=== PATIENT | female | born 1995 | race Two or more races ===

== ENCOUNTER 2024-10-10 08:00 | Emergency (ER) | payer BC, MEDICAID, SELFPAY ==
[2024-10-10 08:18] VITALS: BP 122/76; PULSE 86; RESP 16; TEMP 37.1; O2SAT 95; BMI 26.4
--- NOTE | 2024-10-10 08:46 | EDNOTE_ITS ---
Upper Respiratory Inf. RME/HPI General Chief Complaint: Flu Like Symptoms Stated Complaint: FEVER, COUGH, CONGESTION Time Seen by Provider: 10/10/24 08:11 Arrival date/time: 10/10/24 08:00 This is a 29-year-old female that comes in with complaints of cough and congestion for the past week. Patient states she got a fever yesterday. Patient also complains of a sore throat. Patient reports that the cough is keeping her up at night. Patient reports sick contacts at home with same symptoms. Patient denies past medical history. Related Data Home Medications ?Medication ?Instructions ?Recorded ?Confirmed vitamin with calcium 1 tab PO QDAY 09/21/22 10/03/22 no.72-iron 27 mg-folic acid 1 mg tablet ( Vitamins Plus Low Iron) ursodiol 200 mg capsule 200 mg PO BID 10/03/22 10/03/22 Previous Rx's ?Medication ?Instructions ?Recorded amoxicillin 875 mg tablet 875 mg PO BID #20 tabs 09/22/22 fluconazole 200 mg tablet 400 mg (2 x 200 mg) PO QDAY [place] 10/04/22 fever #60 tabs ibuprofen 800 mg tablet 800 mg PO Q6H PRN pain #14 tabs 10/10/24 promethazine-DM 6.25 mg-15 mg/5 mL 5 ml PO Q6H PRN cough #118 mL 10/10/24 oral syrup Allergies Allergy/AdvReac Type Severity Reaction Status Date / Time No Known Allergies Allergy Verified 10/03/22 11:32 Review of Systems Review of Systems Systems Reviewed: All systems reviewed, normal except as documented Past Medical History Social History SMOKING STATUS: Never smoker SUBSTANCE USE: does not use ALCOHOL: Never Travel History EBOLA RISK: No ED Exam General General appearance: Present alert and in no apparent distress Head Head exam: Present atraumatic Eye Eye exam: Present normal appearance, PERRL and EOMI ENT ENT exam: Present normal exam, normal oropharynx and mucous membranes moist Neck Neck exam: Present normal inspection, full ROM and trachea midline Chest Chest inspection: Present normal inspection and symmetric chest wall rise Respiratory Respiratory exam: Present normal lung sounds bilaterally Cardiovascular Cardiovascular exam: Present regular rate, normal rhythm and normal heart sounds Abdominal Exam Abdominal exam: Present soft Extremities Exam Extremities exam: Present normal inspection and full ROM Back Exam Back exam: Present normal inspection and full ROM Neurological Exam Neurological exam: Present alert, oriented X3 and CN II-XII intact Psychiatric Psychiatric exam: Present normal affect and normal mood Skin Skin exam: Present warm, dry, intact and normal color Course Quality Measures none Orders Category Date Time Status Bedside COVID-19 Antigen Test NOW Care 10/10/24 08:46 Completed Bedside Influenza A&B Antigen Test NOW Care 10/10/24 08:47 Completed Acetaminophen Tab [Tylenol ES Tab] Med 10/10/24 08:43 Discontinued 1,000 mg PO X1 ONE Ibuprofen Tab [Motrin Tab] Med 10/10/24 08:43 Discontinued 800 mg PO X1 ONE Vital Signs Vital signs: Vital Signs Temperature 98.8 F 10/10/24 08:18 Pulse Rate 86 10/10/24 08:18 Respiratory Rate 16 10/10/24 08:18 Blood Pressure 122/76 10/10/24 08:18 Pulse Oximetry (%) 95 10/10/24 08:18 Oxygen Delivery Method Room Air 10/10/24 08:18 Upper Respiratory Infection MDM Narrative MDM Narrative:: Pt given tylenol and ibuprofen. Pt influenza negative. Pt told to follow up with pmd in 1-2 days. Come back to ED if symptoms change or worsen. Patient data External records reviewed:: [facility] previous records Clinical information provided by:: patient Social determinants that could affect healthcare access:: none Patient has the following chronic illnesses:: no How is presenting disease/condition affected by chronic disease/condition?: no chronic disease Evaluation data The following diagnostics were reviewed and interpreted by me:: lab results Lab and/or radiology exams considered but not ordered:: none Interpretation Summary: see note Medications / Prescriptions Medications or Prescriptions considered but not ordered:: none Medication administrations:: Medication Administration History Discontinued Medications Acetaminophen (Acetaminophen 500 Mg Tablet) 1,000 mg PO X1 ONE Stop: 10/10/24 08:44 Last Admin: 10/10/24 09:18 Dose: 1,000 mg Documented By: ARF Ibuprofen (Ibuprofen Tab 400 Mg Tablet) 800 mg PO X1 ONE Stop: 10/10/24 08:44 Last Admin: 10/10/24 09:18 Dose: 800 mg Documented By: ARF see [facility] Consultations Consultation(s) initiated? (list below): No Diagnosis Upper Respiratory Differential Diagnosis: upper respiratory infection, viral infection, bronchitis and influenza Most likely diagnosis given after review of the tests above:: influenza Admission Indicated Admission indicated?: not indicated Admission Request Was there a request for admission?: No Disposition Plan Disposition Plan: Discharge Discharge Attestation Discharge Attestation: The patient and all family members were given an opportunity to ask questions and understood the discharge instructions. Discharge instructions specifically effects, indications for sooner follow up or return to the emergency department, and the expected course of current diagnosis. Patient condition: Stable Discharge Plan Plan Patient Disposition: HOME (Self Care) Patient condition on transfer: Stable Prescriptions/Referrals Prescriptions/Med Rec: New promethazine-DM 6.25-15 mg/5 mL syrup 5 ml PO Q6H PRN (Reason: cough) Qty: 118 0RF ibuprofen 800 mg tablet 800 mg PO Q6H PRN (Reason: pain) Qty: 14 0RF No Action ursodiol 200 mg Capsule 200 mg PO BID fluconazole 200 mg tablet 400 mg PO QDAY Qty: 60 5RF Vitamin Plus Low Iron 27 mg iron- 1 mg tablet 1 tab PO QDAY Patient Comments: Take 1 tablet by mouth once a day amoxicillin 875 mg tablet 875 mg PO BID Qty: 20 0RF Referrals: Reshma López PA-C [Primary Care Provider] - In 1 week Problem List Clinical Impression: Influenza B, Cough Patient/Caregiver Discharge Instructions Discharge Activity: activity as tolerated Education Materials: ED Influenza (Adult) Additional Instructions: Take Tylenol and ibuprofen for fever. Drink plenty of fluids. May take cough medicine as directed. Come back to the emergency room if symptoms change or worsen. Follow-up with primary provider 2 to 3 days Print Language: Peruvian Stand Alone Forms: Norma Award Info., Patient Portal Info Letter BYRON/TAMIKO Supervising Physician MARIE Supervising Physician: vee
[2024-10-10] MEDS: IBUPROFEN TAB 400 MG TABLET 800 MG PO (09:18)
[2024-10-10] MEDS: ACETAMINOPHEN 500 MG TABLET 1000 MG PO (09:18)
== END 2024-10-10 10:36 | disposition home or self-care (01) ==
PROVIDERS: Emergency Provider Emergency Medicine; PCP Physician Assistant
DX: J10.1 Influenza due to other identified influenza virus with other respiratory manifestations (principal)
CPT/HCPCS: 87400; 87811; 99283; A9270